=== PATIENT | female | born 1985 | race American Indian/Alaskan Native ===

== ENCOUNTER 2019-07-05 20:02 | Emergency (ER) | payer BC ==
[~2019-07-05] VITALS: Ht 175.3 cm; Wt 59.9 kg
[2019-07-05] MEDS ORDERED: ONDANSETRON 4 MG/2 ML VIAL ONE ×2 (20:22→20:30)
--- NOTE | 2019-07-05 20:23 | NUR ---
PT CONTINUOSLY DRY HEAVING, NO BLOOD NOR MUCUS ON EMESIS +NAUSEA, +EFFORT TO VOMIT GIVEN PER IV ZOFRAN 4MG ORDERED BY ERMD STARTED ON IV NSS 1OOOML ORDERED RA MONITORED ACCORDINGLY
[2019-07-05 20:24] LABS: BASOPHILS # (AUTO) 0.1 K/uL (0.0-8.0); BASOPHILS % (AUTO) 0.6 % (0.0-2.0); EOSINOPHILS # (AUTO) 0.1 K/uL (0.0-0.7); EOSINOPHILS % (AUTO) 1.1 % (0.0-7.0); HEMATOCRIT 43.5 % (31.2-41.9); HEMOGLOBIN 14.6 g/dL (10.9-14.3); LYMPHOCYTES # (AUTO) 3.8 K/uL (20.0-40.0); LYMPHOCYTES % (AUTO) 33.9 % (20.5-51.5); MEAN CORPUSCULAR HEMOGLOBIN 32.7 uug (24.7-32.8); MEAN CORPUSCULAR HGB CONC 34 g/dL (32.3-35.6); MEAN CORPUSCULAR VOLUME 97.3 fL (75.5-95.3); MONOCYTES # (AUTO) 0.7 K/uL (2.0-10.0); NEUTROPHILS # (AUTO) 6.6 K/uL (1.8-8.9); NEUTROPHILS % (AUTO) 58.4 % (38.5-71.5); PLATELET COUNT (AUTO) 213 K/uL (179-408); RED BLOOD CELL COUNT(AUTO) 4.47 MIL/uL (3.63-4.92); WHITE BLOOD COUNT (AUTO) 11.3 K/uL (3.8-11.8)
[2019-07-05] MEDS ORDERED: ONDANSETRON 4 MG/2 ML VIAL IV ONE ×2 (20:30)
[2019-07-05] MEDS ORDERED: IV NORMAL SALINE 1000 ML BAG IV ONE (20:30)
[2019-07-05 20:32] LABS: CREATININE 1.2 mg/dL (0.6-1.3); POTASSIUM 3.5 mmol/L (3.5-5.1)
--- NOTE | 2019-07-05 20:32 | NUR ---
PT STILL DRY HEAVING (NO NOTED EMESIS) STILL HEAVILY NAUSEATED SECOND DOSE OF ZOFRAN ADMINISTERED VIA R AC G20 IV PT ABLE TO SPEAK WITH ERMD AT BEDSIDE FOR HX AND PHYSICAL
[2019-07-05 20:38] LABS: BILIRUBIN,DIRECT 0.1 mg/dL (0.0-0.2); BILIRUBIN,TOTAL 0.4 mg/dL (0.2-1.0); TOTAL PROTEIN, SERUM 7.8 g/dL (6.4-8.2)
[2019-07-05] MEDS ORDERED: FENTANYL CITRATE 100 MCG/2 ML AMPUL ONE ×2 (21:08→22:37)
[2019-07-05 21:13] LABS: *BILIRUBIN,URIN NEGATIVE (NEGATIVE); *BLOOD, URINE NEGATIVE (NEGATIVE); *CLARITY,URINE CLEAR (CLEAR); *COLOR,URINE YELLOW (YELLOW); *KETONES,URINE NEGATIVE (NEGATIVE); *URINE HCG, QUAL NEGATIVE (NEGATIVE); *UROBILINOGEN,URINE 0.2 E.U./dl (NORMAL); LEUKOCYTE ESTERASE ,URINE NEGATIVE (NEGATIVE); NITRITE, URINE NEGATIVE (NEGATIVE); UGLUCOSE NEGATIVE (NEGATIVE)
[2019-07-05] MEDS ORDERED: FENTANYL CITRATE 100 MCG/2 ML AMPUL IV ONE ×2 (21:15→22:30)
[2019-07-05] MEDS ORDERED: IV NS 1000 ML 1,000 ML IV ONE (21:15)
--- NOTE | 2019-07-05 23:16 | NUR ---
SENIOR PRODUCT ANALYST AT BEDSIDE FOR PELVIC SANDRA
--- NOTE | 2019-07-06 01:00 | NUR ---
Patient discharged to home in stable conditon. Written and verbal after care instructions given. Patient verbalizes understanding of instructions. ALL BELONGINGS W/ PT AMBULATORY W/ STABLE GAIT DC IV, DRESSED FRIEND WILL DRIVE HER HOME
[2019-07-06 01:12] VITALS: BP 110/70
== END 2019-07-06 01:13 | disposition home or self-care (01) ==
LOC: ER 20:02
DX: R10.84 Generalized abdominal pain (principal); R11.10 Vomiting, unspecified
CPT/HCPCS: 36415; 76856; 80048; 80076; 81001; 83605 ×2; 83690; 84703; 85025; 93005; 96361; 96365; 96374; 99284; J2405 ×2; J3010 ×2; A4663; J7030

== ENCOUNTER 2019-07-10 21:59 | Inpatient (IN) | payer BC ==
[~2019-07-10] VITALS: Ht 175.3 cm; Wt 69.4 kg
[2019-07-10] MEDS ORDERED: HYDROMORPHONE 1 MG/1 ML DISP.SYRIN IV ONE (22:30)
[2019-07-10] MEDS ORDERED: IV NORMAL SALINE 1000 ML BAG IV ONE (22:30)
[2019-07-10] MEDS ORDERED: ONDANSETRON 4 MG/2 ML VIAL IV ONE (22:30)
[2019-07-10] MEDS ORDERED: FAMOTIDINE. 20 MG/2 ML VIAL IV ONE (22:30)
[2019-07-10 22:44] LABS: BASOPHILS % (AUTO) 0.5 % (0.0-2.0); EOSINOPHILS # (AUTO) 0.1 K/uL (0.0-0.7); EOSINOPHILS % (AUTO) 1.6 % (0.0-7.0); HEMATOCRIT 42.6 % (31.2-41.9); HEMOGLOBIN 14.2 g/dL (10.9-14.3); LYMPHOCYTES # (AUTO) 2.8 K/uL (20.0-40.0); LYMPHOCYTES % (AUTO) 35.2 % (20.5-51.5); MEAN CORPUSCULAR HEMOGLOBIN 32.4 uug (24.7-32.8); MEAN CORPUSCULAR HGB CONC 34 g/dL (32.3-35.6); MEAN CORPUSCULAR VOLUME 96.8 fL (75.5-95.3); MONOCYTES # (AUTO) 0.6 K/uL (2.0-10.0); MONOCYTES % (AUTO) 8.3 % (0.0-11.0); NEUTROPHILS # (AUTO) 4.3 K/uL (1.8-8.9); NEUTROPHILS % (AUTO) 54.4 % (38.5-71.5); PLATELET COUNT (AUTO) 238 K/uL (179-408); WHITE BLOOD COUNT (AUTO) 7.8 K/uL (3.8-11.8)
[2019-07-10 22:59] LABS: CREATININE 1.1 mg/dL (0.6-1.3); POTASSIUM 3.6 mmol/L (3.5-5.1)
[2019-07-10 23:04] LABS: BILIRUBIN,DIRECT 0.1 mg/dL (0.0-0.2); BILIRUBIN,TOTAL 0.5 mg/dL (0.2-1.0); TOTAL PROTEIN, SERUM 7.8 g/dL (6.4-8.2)
[2019-07-11] MEDS ORDERED: IV NS 1000 ML 1,000 ML IV ONE
[2019-07-11] MEDS ORDERED: LIDOCAINE VISCUS 2% 15 ML UDC MM ONE (00:15)
[2019-07-11] MEDS ORDERED: DICYCLOMINE HCL LIQ 10 MG/5 ML UDC PO ONE (00:15)
[2019-07-11] MEDS ORDERED: MAG HYDROX/AL HYDROX/SIMETH 30 ML LIQUID UDC PO ONE (00:15)
[2019-07-11] MEDS ORDERED: LIDOCAINE VISCUS 2% 15 ML UDC ONE (00:19)
[2019-07-11] MEDS ORDERED: DICYCLOMINE HCL LIQ 10 MG/5 ML UDC ONE (00:32)
[2019-07-11] MEDS ORDERED: MAG HYDROX/AL HYDROX/SIMETH 30 ML LIQUID UDC ONE (00:32)
[2019-07-11 02:06] LABS: *BILIRUBIN,URIN NEGATIVE (NEGATIVE); *BLOOD, URINE NEGATIVE (NEGATIVE); *CLARITY,URINE CLEAR (CLEAR); *COLOR,URINE YELLOW (YELLOW); *KETONES,URINE 1+ (NEGATIVE); *UROBILINOGEN,URINE 0.2 E.U./dl (NORMAL); LEUKOCYTE ESTERASE ,URINE NEGATIVE (NEGATIVE); NITRITE, URINE NEGATIVE (NEGATIVE); PH,URINE 6.5 (5.0-8.0); UGLUCOSE NEGATIVE (NEGATIVE)
[2019-07-11 02:12] LABS: BACTERIA,URINE NONE SEEN /HPF (NONE SEEN); RBC,URINE 0-3 /HPF (0-3); SQUAMOUS EPITHELIAL CELL,UR FEW /HPF (NONE SEEN); WBC,URINE 0-3 /HPF (0-3)
[2019-07-11] MEDS ORDERED: ONDANSETRON 4 MG/2 ML VIAL IV ONE (03:00)
--- NOTE | 2019-07-11 03:15 | NUR ---
PT SYMPTOMS OF SCRATCHY THROAT AND VOMITING CAME BACK. ERMD AWARE MONITORED ACCORDINGLY ASP PREC RA
--- NOTE | 2019-07-11 03:30 | NUR ---
CALL FOR BED PT TO BE ADMITTED M/S DX INTRACTABLE VOMITING UNDER ROMERO
--- NOTE | 2019-07-11 03:56 | NUR ---
ESTELA ROMERO ON THE PHONE W/ EARL
[2019-07-11] MEDS ORDERED: IV NS 1000 ML 1,000 ML IV PRN (04:04)
[2019-07-11] MEDS ORDERED: Z GUARD REMEDY PASTE 57 GM TUBE TOP PRN (04:15)
[2019-07-11] MEDS ORDERED: ACETAMINOPHEN 325 MG TABLET PO PRN (04:15)
[2019-07-11] MEDS ORDERED: ONDANSETRON 4 MG/2 ML VIAL IV PRN ×2 (04:15→13:45)
[2019-07-11] MEDS ORDERED: TEMAZEPAM 15 MG CAPSULE PO PRN (04:15)
[2019-07-11] MEDS ORDERED: MORPHINE SULFATE 2 MG/1 ML DISP.SYRIN IV PRN ×2 (04:15→07:15)
--- NOTE | 2019-07-11 04:15 | NUR ---
HAND OFF AND SBAR GIVEN TO ABDI ARROYO
--- NOTE | 2019-07-11 04:30 | NUR ---
RECEIVED PT FROM ER VIA TODD. DX: INTRACTABLE VOMITTING. UNDER THE CARE OF DR. ROMERO. PT IN NO ACUTE DISTRESS. SHELTER ASSESSMENT DONE.ADMISSION PROCESS AND CARE PLAN INITIATED. SAFETY AND COMFORT PROVIDED. WILL CONTINUE TO MONITOR.
--- NOTE | 2019-07-11 04:31 | NUR ---
PT TRANSPORTED TO [facility] BY RN VIA [facility]
[2019-07-11 05:47] VITALS: BP 128/79
--- NOTE | 2019-07-11 06:58 | NUR ---
PT WITH NO SIGNS OF VOMITTING . PT STABLE. IN NO ACUTE DISTRESS. WILL CONTINUE TO MONITOR.
--- NOTE | 2019-07-11 06:59 | NUR ---
PT IN NO ACUTE DISTRESS. IV INTACT. SAFETY AND COMFORT PROVIDED. WILL ENDORSE TO INCOMING NURSE FOR CONTINUITY OF CARE.
--- NOTE | 2019-07-11 08:20 | NUR ---
RECEIVED PT RESTING IN BED COMFORTABLY. NO ACUTE DISTRESS OR SOB NOTED. PT DENIES PAIN AND NAUSEA AT THIS TIME. WILL START CLEAR LIQUID DIET PER CHANDNI ROMERO. BED LOCKED AND IN LOW POSITION. PT AWAKE AND PLEASANT. WILL CONTINUE TO MONITOR FOR SAFETY AND COMFORT.
[2019-07-11] MEDS: PANTOPRAZOLE SODIUM 40 MG VIAL IV SCH (08:45)
[2019-07-11 11:33] VITALS: BP 106/66
[2019-07-11] MEDS ORDERED: ACETAMINOPHEN 650 MG SUPP.RECT RC PRN (13:45)
[2019-07-11] MEDS ORDERED: SWABABLE VALVE TRANSFER SET EA MC ONE (13:52)
[2019-07-11] MEDS ORDERED: IV NORMAL SALINE 250 ML IV ONE (13:52)
[2019-07-11] MEDS ORDERED: IOHEXOL 300MG/ML 100 ML INFUS..BTL ONE (13:52)
[2019-07-11 15:48] VITALS: BP 116/72
[2019-07-11] MEDS: IV D5/ 0.9% NACL 1,000 ML IV PRN (16:28)
[2019-07-11] MEDS: MORPHINE SULFATE 2 MG/1 ML DISP.SYRIN IV PRN ×2 (18:16→23:31)
--- NOTE | 2019-07-11 18:20 | NUR ---
PT SHOWS NO ACUTE DISTRESS OR SOB. IV INTACT. PT'S DIET IS FULL LIQUID. ZOFRAN AND MORPHINE GIVEN FOR NAUSEA AND PAIN RESPECTIVELY. BED LOCKED AND IN LOW POSITION. HIV, HEP C AND HEP B SCREENING ORDERED BY MD. PT ALERT AND ORIENTED X4. PLEASANT AND COOPERATIVE. SAFETY AND COMFORT PROVIDED. WILL ENDORSE TO INCOMING NURSE FOR CONTINUITY OF CARE.
--- NOTE | 2019-07-11 19:30 | NUR ---
RECEIVED PT AWAKE, ALERT AND ORIENTEDX4. ROOMMATE AT BEDSIDE. PT IN NO ACUTE DISTRESS. IV INTACT. SAFETY AND COMFORT PROVIDED. WILL CONTINUE TO MONITOR.
[2019-07-11 19:58] VITALS: BP 115/71
[2019-07-12] MEDS: MORPHINE SULFATE 2 MG/1 ML DISP.SYRIN IV PRN ×3 (02:20→15:48)
[2019-07-12] MEDS: IV D5/ 0.9% NACL 1,000 ML IV PRN (02:25)
--- NOTE | 2019-07-12 02:30 | NUR ---
PT HAD 10/10 PAIN ON HER MEDIAL LOWER ABDOMEN. GAVE PAIN MANAGEMENT. GAVE WARM COMPRESS. GAVE MORPHINE . PT TOLERATED IT WELL. GAVE PRUNE JUICE TO PROMOTE BOWEL MOVEMENT PER PT DOESN'T HAVE BOWEL MOVEMENT FOR 4 DAYS. PER PT SHE HAD EPISODES OF SAME PAIN BEFORE WHEN SHE HAD HER OVARIAN SURGERY. PT SAID SHE THINKS ITS NOT BECAUSE SHE DIDN'T POOPED. SHE DIDN'T EAT A LOT FOR SEVERAL DAYS. WILL CONTINUE TO MONITOR.
[2019-07-12 04:05] VITALS: BP 111/70
--- NOTE | 2019-07-12 06:43 | NUR ---
PT IN NO ACUTE DISTRESS. IV INTACT. PT REQUESTED TO HOLD HER IV FLUIDS. PRESCRIBED MEDICATION GIVEN AND PT TOLERATED IT WELL. PAIN MEDICATION GIVEN AND WARM COMPRESS . PT TOLERATED IT WELL. SAFETY AND COMFORT PROVIDED. ALL NEEDS ARE MET. WILL ENDORSE TO INCOMING NURSE FOR CONTINUITY OF CARE.
[2019-07-12 07:05] LABS: EOSINOPHILS # (AUTO) 0.2 K/uL (0.0-0.7); HEMOGLOBIN 11.9 g/dL (10.9-14.3); MONOCYTES # (AUTO) 0.4 K/uL (2.0-10.0); NEUTROPHILS # (AUTO) 1.5 K/uL (1.8-8.9)
[2019-07-12 07:38] LABS: CREATININE 0.7 mg/dL (0.6-1.3); MAGNESIUM 1.9 mg/dL (1.8-2.4)
--- NOTE | 2019-07-12 08:00 | NUR ---
RECEIVED PT RESTING IN BED COMFORTABLY. NO ACUTE DISTRESS OR SOB NOTED. PT DENIES PAIN AND NAUSEA AT THIS TIME. IVF RUNNING. IV FLUSHED, SITE INTACT. BED LOCKED AND IN LOW POSITION. PT AWAKE AND PLEASANT. WILL CONTINUE TO MONITOR FOR SAFETY AND COMFORT
[2019-07-12 08:07] LABS: POTASSIUM 3.5 mmol/L (3.5-5.1)
[2019-07-12] MEDS: PANTOPRAZOLE SODIUM 40 MG VIAL IV SCH (08:41)
[2019-07-12 09:01] LABS: HEPATITIS B SURFACE AB Non Reactive (.)
[2019-07-12 11:14] VITALS: BP 101/66
[2019-07-12 11:21] LABS: PHOSPHOROUS 3.1 mg/dL (2.5-4.9)
--- NOTE | 2019-07-12 12:40 | NUR ---
MORPHINE GIVEN ALONG WITH HEATING PAD FOR PAIN.
[2019-07-12 15:06] VITALS: BP 101/68
[2019-07-12 17:53] LABS: BASOPHILS % (AUTO) 0.9 % (0.0-2.0); EOSINOPHILS % (AUTO) 3.8 % (0.0-7.0); HEMATOCRIT 36.4 % (31.2-41.9); LYMPHOCYTES % (AUTO) 49.2 % (20.5-51.5); MEAN CORPUSCULAR HEMOGLOBIN 32.2 uug (24.7-32.8); MEAN CORPUSCULAR HGB CONC 33 g/dL (32.3-35.6); MEAN CORPUSCULAR VOLUME 98.4 fL (75.5-95.3); MONOCYTES % (AUTO) 8.8 % (0.0-11.0); NEUTROPHILS % (AUTO) 37.3 % (38.5-71.5); PLATELET COUNT (AUTO) 158 K/uL (179-408)
--- NOTE | 2019-07-12 19:30 | NUR ---
PT HAS BEEN DISCHARGED. PT ALERT AND ORIENTED X4. PLEASANT AND COOPERATIVE. IV LINE REMOVED INTACT. NO ACUTE DISTRESS OR SOB NOTED. DISCHARGE INSTRUCTIONS GIVEN TO PATIENT WITH GOOD UNDERSTANDING. RX SENT ELECTRONICALLY TO PATIENT'S PREFERRED PHARMACY. STEADY GAIT. BELONGINGS LIST SIGNED. BELONGINGS RETURNED. PT ESCORTED TO PRIVATE TRANSPORT BY [facility] STAFF. Addendum: 07/12/19 at 1942 by BEATRICE GOOD RN PT ESCORTED OUT OF FACILITY AT 1900.
== END 2019-07-12 21:06 | disposition home or self-care (01) | DRG 392 ==
LOC: ER 21:59 → MEDSURG3 07-11 04:23
PROVIDERS: ADMIT Nurse Practitioner Acute Care; ATTEND Internal Medicine
DX: K29.70 Gastritis, unspecified, without bleeding (principal); R11.15 Cyclical vomiting syndrome unrelated to migraine; N94.6 Dysmenorrhea, unspecified; M50.321 Other cervical disc degeneration at C4-C5 level; M46.02 Spinal enthesopathy, cervical region
CPT/HCPCS: 36415; 70360; 71045; 83690; 83735; 84100; 85025; 86704; 86706; 86803; 87806; 93005; A4663; C9113; G0378; J1170; J2270; J2405; J3490; J7030; J7042; J7050; Q9967

== ENCOUNTER 2020-12-22 03:24 | Emergency (ER) | payer BC, MEDICAID ==
[~2020-12-22] VITALS: Ht 175.3 cm; Wt 65.8 kg
[~2020-12-22 03:24] MED LIST: AMPH15TA2 PO; HYDR-4354 PO; ONDA4TAB5 PO; PANT40TA49 PO
--- NOTE | 2020-12-22 03:28 | NUR ---
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 Pt. denies any injury to the area. Pt. also denies any pain with urination or foul odor.
--- NOTE | 2020-12-22 03:51 | NUR ---
ELECTRICAL PROJECT ENGINEER CALLED @ 03:50AM FOR ULTRASOUND OF THE PELVIS
[2020-12-22] MEDS ORDERED: KETOROLAC TROMETHAMINE 30 MG INJ IM ONE (04:00)
[2020-12-22 04:13] LABS: *BILIRUBIN,URIN NEGATIVE (NEGATIVE); *BLOOD, URINE NEGATIVE (NEGATIVE); *CLARITY,URINE CLEAR (CLEAR); *COLOR,URINE YELLOW (YELLOW); *KETONES,URINE NEGATIVE (NEGATIVE); *UROBILINOGEN,URINE 0.2 E.U./dl (NORMAL); LEUKOCYTE ESTERASE ,URINE NEGATIVE (NEGATIVE); NITRITE, URINE NEGATIVE (NEGATIVE); UGLUCOSE NEGATIVE (NEGATIVE)
[2020-12-22 04:16] LABS: *URINE HCG, QUAL NEGATIVE (NEGATIVE)
[2020-12-22 04:31] LABS: HEMATOCRIT 36.7 % (31.2-41.9); MEAN CORPUSCULAR HEMOGLOBIN 31.9 uug (24.7-32.8); MEAN CORPUSCULAR VOLUME 94.1 fL (75.5-95.3); PLATELET COUNT (AUTO) 189 K/uL (179-408)
[2020-12-22 04:42] LABS: BILIRUBIN,DIRECT 0.1 mg/dL (0.0-0.2); BILIRUBIN,TOTAL 0.1 mg/dL (0.2-1.0); CREATININE 0.8 mg/dL (0.6-1.3); POTASSIUM 3.8 mmol/L (3.5-5.1); TOTAL PROTEIN, SERUM 6.2 g/dL (6.4-8.2)
[2020-12-22] MEDS ORDERED: KETOROLAC TROMETHAMINE 30 MG INJ ONE (04:45)
--- NOTE | 2020-12-22 04:58 | NUR ---
US at bedside
[2020-12-22] MEDS ORDERED: MORPHINE SULFATE 4 MG/1 ML DISP.SYRIN ONE (05:28)
[2020-12-22] MEDS ORDERED: ACET-2154 PO ×2 (05:28→05:30)
[2020-12-22] MEDS ORDERED: ONDANSETRON ODT 4 MG TAB.RAPDIS ONE (05:28)
[2020-12-22] MEDS ORDERED: NAPR-1164 PO ×2 (05:28→05:30)
[2020-12-22] MEDS ORDERED: MORPHINE SULFATE 2 MG/1 ML DISP.SYRIN ONE (05:28)
[2020-12-22] MEDS ORDERED: ONDANSETRON HCL 4 MG TABLET PO ONE (05:30)
[2020-12-22] MEDS ORDERED: MORPHINE SULFATE 4 MG/1 ML DISP.SYRIN IM ONE (05:30)
[2020-12-22] MEDS ORDERED: ONDA4TAB5 PO (05:39)
--- NOTE | 2020-12-22 05:40 | NUR ---
Patient discharged to home in stable condition. Written and verbal after care instructions given. Patient verbalizes understanding of instructions. Stressed follow up or return to ER for worsening s/s. Pt driven home by roomate. Walks with steady gait, all belongings taken.
[2020-12-22 06:23] VITALS: BP 112/88
== END 2020-12-22 05:40 | disposition home or self-care (01) ==
LOC: ER 03:26
DX: R10.32 Left lower quadrant pain (principal); Z87.898 Personal history of other specified conditions
CPT/HCPCS: 36415; 76856; 80048; 80076; 81003; 83690; 84703; 85025; 96372 ×2; 99284; J1885; J2270 ×2; A4663; Q0162